=== PATIENT | male | born 2000 | race Caucasian/White ===

== ENCOUNTER 2024-03-08 12:57 | Emergency (ER) | payer BC, SELFPAY ==
--- NOTE | ~2024-03-08 | XR_ITS ---
EXAMINATION: XR foot RT min 3V DATE: 03/08/2024 13:27 INDICATION: Right great toe injury TECHNIQUE: Dorsoplantar, two oblique and lateral views of the 8 foot were obtained. COMPARISON: None. FINDINGS: Comminuted fracture of the right first distal phalanx which is most severe at the tuft where there is up to 4-5 mm separation along at least 2 of the fracture planes. There is intra-articular extension to the proximal articular surface along a nondisplaced fracture plane. No other fractures identified. Normal alignment throughout the remainder of the right foot. Joint spaces are normal. IMPRESSION: 1. Fracture of the right first distal phalanx with nondisplaced intra-articular fracture plane and si gnificant comminution and displacement at the tuft. Reviewed, dictated and finalized at location B. IMPRESSION: 1. Fracture of the right first distal phalanx with nondisplaced intra-articular fracture plane and significant comminution and displacement at the tuft.
[2024-03-08 13:12] VITALS: BP 161/68; PULSE 90; RESP 18; TEMP 36.6; O2SAT 100
--- NOTE | 2024-03-08 13:20 | ED.LOWEXIN ---
HPI - Extremity Injury (Lower) General Chief Complaint: Extremity Injury, Lower <Angelia Meza PA-C - Last Filed: 03/08/24 13:20> Stated Complaint: right big toe injury <Angelia Meza PA-C - Last Filed: 03/08/24 13:20> Time Seen by Provider: 03/08/24 19:11 <Angelia Meza PA-C - Last Filed: 03/08/24 13:20> Focused HPI: 24-year-old male presents to the emergency department for an injury to his right great toe that occurred this morning. Patient states he dropped a cabinet on his toe. He went to [facility] urgent care was sent to the ED for further evaluation. Last Tdap unknown. GENERAL: Well-appearing, well-nourished, and in no acute distress. HEAD: Normocephalic, atraumatic. CHEST: Clear to auscultation. ?No respiratory distress. SKIN: Great toe with Nail avulsed off the proximal nail fold with fatty tissue exposed, subungual hematoma, mild active oozing. No deep structures or foreign bodies visualized. Patient has full active and passive range of motion of toe. Cap refill less than 2. Sensation intact. HEART: Regular rate and rhythm.? NEURO: ?Alert and oriented x3. Patient screened in triage and initial orders placed.? ?Additional care and disposition to be based upon?diagnostic testing and treatment. <Angelia Meza PA-C - Last Filed: 03/08/24 13:20> History of Present Illness HPI Narrative: 24-year-old male presenting for right great toe injury after dropping a dresser on it. Heparin at 10:00 a.m. this morning. [facility] urgent [facility] with was bandaged up in bleeding is well controlled. He has no neuropathy or weakness any to plantar and dorsiflex the foot and digits. He does have an avulsed nail, bleeding has stopped. Pain with palpation but no significant swelling. Tetanus is not up-to-date. <Donnie Ford MD - Last Filed: 03/09/24 03:56> Related Data Allergies/Adverse Reactions: Allergies Allergy/AdvReac Type Severity Reaction Status Date / Time No Known Allergies Allergy Unknown Unverified 03/08/24 12:57 <Angelia Meza PA-C - Last Filed: 03/08/24 13:20> Review of Systems Review of Systems: As reviewed above in HPI <Donnie Ford MD - Last Filed: 03/09/24 03:56> Exam Narrative: GENERAL: [Well-appearing, well-nourished, and in no acute distress.] HEAD: [Normocephalic, atraumatic.] EYES: [PERRLA and EOMI.] ENT: Nares clear, no rhinorrhea or epistaxis. Mucous membranes moist. NECK: Supple. CHEST: [Clear to auscultation. No respiratory distress.] HEART: [Regular rate and rhythm]. No murmur heard. [Normal peripheral pulses.] ABDOMEN: [Soft, nondistended], [nontender], [No rigidity or guarding] EXTREMITIES: The right great toe has an obvious nail avulsion, tenderness to palpation over the distal part of the phalanx, able to wiggle and plantar and dorsiflex the ankle. Blood clots without any active bleeding. No neuropathy. SKIN: Warm, dry, no rash. NEURO: [No focal deficits]. Alert and oriented [x3.] PSYCH: [Normal mood and affect.] <Donnie Ford MD - Last Filed: 03/09/24 03:56> Course Vital Signs Vital signs: Vital Signs Temperature 36.6 C 03/08/24 13:12 Pulse Rate 90 03/08/24 13:12 Respiratory Rate 18 03/08/24 13:12 Blood Pressure 161/68 H 03/08/24 13:12 Pulse Oximetry 100 03/08/24 13:12 Oxygen Delivery Room Air 03/08/24 13:12 Temperature 36.6 C 03/08/24 13:12 Pulse Rate 69 03/08/24 21:30 Respiratory Rate 17 03/08/24 21:30 Blood Pressure 158/56 H 03/08/24 21:30 Pulse Oximetry 98 03/08/24 21:30 Oxygen Delivery Room Air 03/08/24 13:12 <Angelia Meza PA-C - Last Filed: 03/08/24 13:20> Vital Signs Temperature 36.6 C 03/08/24 13:12 Pulse Rate 90 03/08/24 13:12 Respiratory Rate 18 03/08/24 13:12 Blood Pressure 161/68 H 03/08/24 13:12 Pulse Oximetry 100 03/08/24 13:12 Oxygen Delivery Room Air 03/08/24 13:12 Temperature 36.6 C
--- NOTE | 2024-03-08 19:00 | PC.NURSE ---
FATHER OF THE PT ANGRY ABOUT WAIT TIME, STATED THAT PT HAS BEEN BLEEDING F ROM INJURY. OFFERED TO DRESS AND CLEAN WOUND. FATHER STATED WILL JUST WAIT TO BE CALLED
[2024-03-08 19:52] VITALS: BP 144/73; PULSE 86; RESP 18; O2SAT 99
[2024-03-08] MEDS: TETANUS,DIPHTHERIA,AC PERTUSSIS ADULT (0.5 ML) BOOSTRIX IM (20:05)
[2024-03-08] MEDS: MORPHINE SULFATE (*CRX) 4 MG/ML INJ IV PUSH (20:06)
[2024-03-08] MEDS: ceFAZolin 2 GM/D5W 50 ML 2 GM/50 ML BAG IVPB (20:06)
[2024-03-08 20:17] LABS: Basophils Percent Auto 0.2 % (0.2-1.2); Hematocrit 45.1 % (42.0-52.0); Hemoglobin 15.5 g/dL (14.0-18.0); Immature Granulocyte Absolute 0.02 K/mm3 (0.00-0.031); Immature Granulocyte Percent A 0.2 % (0-0.5); Lymphocytes Absolute Auto 1.69 K/mm3 (0.9-3.2); Lymphocytes Percent Auto 19.8 % (18.3-44.2); Mean Corpuscular HGB Conc 34.4 g/dl (32-36); Mean Corpuscular Hemoglobin 29.5 pg (26-34); Mean Corpuscular Volume 85.9 fl (80-100); Mean Platelet Volume 9.8 fl (7.4-10.4); Monocytes Absolute Auto 0.4 K/mm3 (0.1-0.6); Monocytes Percent Auto 4.8 % (2.6-8.5); Neutrophils Absolute Auto 6.4 K/mm3 (1.3-6.7); Platelet Count Result 277 k/mm3 (150-375); Red Blood Count 5.25 M/mm3 (4.6-6.20); Red Cell Distribution Width 13.2 % (11.5-14.5); White Blood Count 8.6 K/mm3 (4.5-10.0)
[2024-03-08 20:27] LABS: Anion Gap 12 mmol/L (4-12); Blood Urea Nitrogen 14 mg/dL (9-20); Calcium 9.7 mg/dL (8.4-10.2); Carbon Dioxide 27 mmol/L (22-30); Chloride 100 mmol/L (98-107); Estimated CRCL calculation 145 ml/min; Estimated Glomerular Filt Rate > 60; Glucose 107 mg/dL (65-110); Potassium 3.9 mmol/L (3.4-5.0); Sodium 139 mmol/L (137-145)
[2024-03-08 20:28] LABS: Prothrombin Time 13.3 Seconds (11.1-14.7)
[2024-03-08 21:30] VITALS: BP 158/56; PULSE 69; RESP 17; O2SAT 98
== END 2024-03-08 21:54 | disposition home or self-care (01) ==
PROVIDERS: Emergency Provider Student in an Organized Health Care Education/Training Program
DX: S92.424B Nondisplaced fracture of distal phalanx of right great toe, initial encounter for open fracture (principal); Z23 Encounter for immunization; W20.8XXA Other cause of strike by thrown, projected or falling object, initial encounter
CPT/HCPCS: 11740; 11760; 12002; 28495; 36415; 73630; 80048; 85025; 85610; 85730; 86850; 86900; 86901; 90471; 90715; 96365; 96375; 99285; J0690; J2270